=== PATIENT | female | born 1955 | race Caucasian/White ===

== ENCOUNTER → 2021-11-13 14:06 | Outpatient (CLI) | payer OTHER, SELFPAY ==
[2021-11-13 14:43] LABS: Hematocrit 35.4 % (36-46); Hemoglobin 12.1 g/dL (12.0-16.0); Mean Corpuscular HGB Conc 34.1 % (30-36); Mean Corpuscular Hemoglobin 31.4 PG (26-34); Mean Corpuscular Volume 92.1 fL (80-100); Platelet Count 191 X10^3/uL (150-400); Red Blood Cell Count 3.84 X10^6/uL (4.0-5.2); Red Cell Distribution Width 13.3 % (11.6-14.8); White Blood Cell Count 4.1 X10^3/uL (4.5-11.0)
[2021-11-13 15:16] LABS: Alanine Aminotransferase 15 IU/L (<35); Albumin 4.4 g/dL (3.5-5.0); Albumin Globulin Ratio 1.4 (1.0-2.8); Alkaline Phosphatase 87 U/L (38-126); Aspartate Aminotransferase 27 IU/L (14-36); Bilirubin Total 1.2 mg/dL (0.2-1.3); Blood Urea Nitrogen 13 mg/dL (7-17); Calcium 9.2 mg/dL (8.4-10.2); Carbon Dioxide 28 mmol/L (22-32); Chloride 105 mmol/L (98-107); Cholesterol 223 mg/dL (140-199); Estimated Glomerular Filt Rate > 60 mL/min (>60); Globulin 3.1 g/dL (1.7-4.1); Glucose 99 mg/dL (80-110); HDL Cholesterol 59 mg/dL (40-60); HEMOLYSIS < 15 (0-50); LDL Cholesterol Calculated 147 mg/dL (<100); Potassium 4.3 mmol/L (3.4-5.1); Sodium 138 mmol/L (137-145); Total Protein 7.5 g/dL (6.3-8.2); Triglycerides 86 mg/dL (35-150)
[2021-11-13 15:46] LABS: TSH w/ Reflex to FT4 1.14 uIU/mL (0.47-4.68)
[2022-02-06 14:14] LABS: Fecal Immunochemical Test Negative (Negative)
== END ==
PROVIDERS: PCP Internal Medicine; Referring Provider Internal Medicine; Visit Provider Internal Medicine
DX: R00.2 Palpitations (principal)
CPT/HCPCS: 36415; 80053; 80061; 82274; 84443; 85027; 93005; 93010

== ENCOUNTER → 2023-08-11 08:59 | Outpatient (CLI) | payer MEDICARE, OTHER, SELFPAY ==
[2023-08-11 10:21] LABS: Hematocrit 34.5 % (36-46); Hemoglobin 11.9 g/dL (12.0-16.0); Mean Corpuscular HGB Conc 34.5 % (30-36); Mean Corpuscular Hemoglobin 31.4 PG (26-34); Mean Corpuscular Volume 91.1 fL (80-100); Platelet Count 196 X10^3/uL (150-400); Red Blood Cell Count 3.78 X10^6/uL (4.0-5.2); Red Cell Distribution Width 13.3 % (11.6-14.8); White Blood Cell Count 3.2 X10^3/uL (4.5-11.0)
[2023-08-11 10:49] LABS: Alanine Aminotransferase 15 IU/L (<35); Albumin 4.2 g/dL (3.5-5.0); Albumin Globulin Ratio 1.4 (1.0-2.8); Alkaline Phosphatase 91 U/L (38-126); Aspartate Aminotransferase 25 IU/L (14-36); BUN Creatinine Ratio 22.6 (6-22); Bilirubin Total 0.8 mg/dL (0.2-1.3); Blood Urea Nitrogen 14 mg/dL (7-17); Calcium 9.5 mg/dL (8.4-10.2); Carbon Dioxide 26 mmol/L (22-32); Chloride 106 mmol/L (98-107); Cholesterol 189 mg/dL (140-199); Estimated Glomerular Filt Rate > 60 mL/min (>60); Globulin 3.1 g/dL (1.7-4.1); Glucose 94 mg/dL (80-110); HDL Cholesterol 52 mg/dL (40-60); HEMOLYSIS < 15 (0-50); LDL Cholesterol Calculated 122 mg/dL (<100); Lactate Dehydrogenase 153 U/L (120-246); Potassium 4.6 mmol/L (3.4-5.1); Sodium 140 mmol/L (137-145); Total Protein 7.3 g/dL (6.3-8.2); Triglycerides 76 mg/dL (35-150)
[2023-08-11 11:19] LABS: TSH w/ Reflex to FT4 0.58 uIU/mL (0.47-4.68)
== END ==
PROVIDERS: PCP Internal Medicine; Referring Provider Internal Medicine; Visit Provider Internal Medicine
DX: Z85.79 Personal history of other malignant neoplasms of lymphoid, hematopoietic and related tissues (principal); E78.2 Mixed hyperlipidemia
CPT/HCPCS: 36415; 80053; 80061; 83615; 84443; 85027

== ENCOUNTER → 2023-09-23 10:34 | Outpatient (CLI) | payer MEDICARE, OTHER, SELFPAY ==
[2023-09-24 12:59] LABS: Fecal Immunochemical Test Negative (Negative)
== END ==
LOC: LAB 10:35
PROVIDERS: PCP Internal Medicine; Referring Provider Internal Medicine; Visit Provider Internal Medicine
DX: Z12.11 Encounter for screening for malignant neoplasm of colon (principal)
CPT/HCPCS: 82274

== ENCOUNTER → 2023-10-08 09:58 | Outpatient (CLI) | payer MEDICARE, OTHER, SELFPAY ==
--- NOTE | 2023-10-08 10:00 | DI.RAD.S_ITS ---
Bone Density Report Name: RIKKI CONTE Age: 68 Sex: Female Ethnicity: White Date of : 1955 Indication: postmenopausal; screening for osteoporosis; history of glucocorticoids; Referring Provider: MEL FREED Study: Bone densitometry was performed. Exam Date: October 08, 2023 Accession number: [id number] Bone Density: Region BMD T-score Z-score Classification AP Spine(L1-L4) 1.081 0.3 2.3 Normal Femoral Neck (Left) 0.720 -1.2 0.6 Osteopenia Total Hip (Left) 0.967 0.2 1.6 Normal Femoral Neck (Right) 0.887 0.3 2.1 Normal Total Hip (Right) 0.962 0.2 1.6 Normal Total Hip Mean 0.964 0.2 1.6 Normal World Health Organization criteria for BMD impression classify patients as: Normal (T-score at or above -1.0), Osteopenia (T-score between -1.0 and -2.5), or Osteoporosis (T-score at or below -2.5). 10-year Fracture Risk(1): Major Osteoporotic Fracture 14% Hip Fracture 1.6% Reported Risk Factors: [place] (), Neck BMD=0.720, BMI=26.4, glucocorticoids (1) FRAX(R) Version 3.08. Fracture probability calculated for an untreated patient. Fracture probability may be lower if the patient has received treatment. Impression: The patient has low bone mass, based on the Left Femoral Neck T-score. The patient has an estimated ten-year risk of hip fracture of 1.6% and an estimated ten-year risk of major fracture of 14%, based on the WHO FRAX algorithm. The patient has risk factors, including: history of glucocorticoid therapy. Discussion: BONE DENSITY IS LOW AT ONE OR MORE SKELETAL SITES. This patient's lowest T-score is low at one or more skeletal sites. It meets the World Health Organization's (WHO) criteria for low bone mass (T-score between -1.0 and -2.5). The patient's 10-year risk of fracture as calculated by FRAX is less than the threshold where pharmacological therapy is recommended by the National Osteoporosis Foundation (NOF). However, all treatment decisions require clinical judgment and consideration of individual patient factors, including patient preferences, comorbidities, previous drug use, risk factors not captured in the FRAX model (e.g., frailty, falls, vitamin D deficiency, increased bone turnover, interval significant decline in bone density) and possible under or overestimation of fracture risk by FRAX. The patient should follow a healthful lifestyle (good nutrition with adequate calcium and vitamin D, and appropriate weight-bearing exercise). Follow-Up: Consider repeating this study in 2 to 3 years to reassess this patient's status, or sooner if there is some new clinical indication. Reported by: JAZ GALLARDO M.D. on 10/08/2023 10:30:00 AM.
== END ==
LOC: RAD 10:00
PROVIDERS: PCP Internal Medicine; Referring Provider Internal Medicine; Visit Provider Internal Medicine
DX: M85.89 Other specified disorders of bone density and structure, multiple sites (principal)
CPT/HCPCS: 77080

== ENCOUNTER → 2023-10-11 09:34 | Outpatient (CLI) | payer MEDICARE, OTHER, SELFPAY ==
--- NOTE | 2023-10-11 09:35 | DI.RAD.S_ITS ---
PROCEDURE: XR ELBOW RT MIN 3V INDICATIONS: right elbow pain TECHNIQUE: 3 views of the elbow were acquired. COMPARISON: None. FINDINGS: Bones: No fractures or dislocations. Osteoarthritic changes are noted in elbow joints. No suspicious bony lesions. Soft tissues: No elbow joint effusion. Small corticated calcifications are noted adjacent to both medial and lateral humeral condyles suggestive of old avulsion injuries. IMPRESSION: Elbow joint osteoarthritis. No acute fracture or dislocation. No significant joint effusion. Dictated by: Getachew Pérez M.D. on 10/11/2023 at 10:16 Approved by: Getachew Pérez M.D. on 10/11/2023 at 10:16
== END ==
PROVIDERS: PCP Internal Medicine; Referring Provider Internal Medicine; Visit Provider Internal Medicine
DX: M19.021 Primary osteoarthritis, right elbow (principal); M25.521 Pain in right elbow
CPT/HCPCS: 73080

== ENCOUNTER → 2024-12-04 16:14 | Outpatient (CLI) | payer MEDICARE, OTHER, SELFPAY ==
[2024-12-04 17:18] LABS: Hematocrit 34.7 % (36-46); Hemoglobin 11.8 g/dL (12.0-16.0); Mean Corpuscular HGB Conc 34.1 % (30-36); Mean Corpuscular Hemoglobin 31.4 PG (26-34); Mean Corpuscular Volume 92.2 fL (80-100); Platelet Count 202 X10^3/uL (150-400); Red Blood Cell Count 3.76 X10^6/uL (4.0-5.2); Red Cell Distribution Width 13.2 % (11.6-14.8)
[2024-12-04 17:41] LABS: HEMOLYSIS < 15 (0-50)
[2024-12-04 17:47] LABS: Alanine Aminotransferase 16 IU/L (<35); Albumin 4.3 g/dL (3.5-5.0); Albumin Globulin Ratio 1.5 (1.0-2.8); Alkaline Phosphatase 85 U/L (38-126); Aspartate Aminotransferase 27 IU/L (14-36); Bilirubin Total 0.9 mg/dL (0.2-1.3); Blood Urea Nitrogen 12 mg/dL (7-17); Calcium 9.4 mg/dL (8.4-10.2); Carbon Dioxide 27 mmol/L (22-32); Chloride 104 mmol/L (98-107); Cholesterol 190 mg/dL (140-199); Estimated Glomerular Filt Rate > 60 mL/min (>60); Globulin 2.9 g/dL (1.7-4.1); Glucose 103 mg/dL (70-99); HDL Cholesterol 55 mg/dL (40-60); LDL Cholesterol Calculated 120 mg/dL (<100); Potassium 3.8 mmol/L (3.4-5.1); Sodium 138 mmol/L (137-145); Total Protein 7.2 g/dL (6.3-8.2); Triglycerides 74 mg/dL (35-150)
[2024-12-04 18:19] LABS: TSH w/ Reflex to FT4 0.39 uIU/mL (0.47-4.68)
[2024-12-04 18:38] LABS: Vitamin B12 Reflex MMA if <400 546 pg/mL (239-931)
[2024-12-04 18:44] LABS: Free T4, Direct Thyroxine 1.05 ng/dL (0.78-2.19)
== END ==
PROVIDERS: PCP Internal Medicine; Referring Provider Internal Medicine; Visit Provider Internal Medicine
DX: E78.2 Mixed hyperlipidemia (principal); E53.8 Deficiency of other specified B group vitamins; Z85.79 Personal history of other malignant neoplasms of lymphoid, hematopoietic and related tissues
CPT/HCPCS: 36415; 80053; 80061; 82607; 84439; 84443; 85027